=== PATIENT | male | born 1950 | race Caucasian/White ===

== ENCOUNTER → 2017-10-27 10:33 | Outpatient (CLI) | payer MEDICARE, MEDICAID, SELFPAY | PROVIDERS: PCP Family Medicine; Visit Provider Internal Medicine Transplant Hepatology | DX: B18.2 Chronic viral hepatitis C (principal) | CPT/HCPCS: 36415; 87517; 87522 ==

== ENCOUNTER → 2022-12-07 10:20 | Outpatient (CLI) | payer MEDICARE, SELFPAY ==
--- NOTE | 2022-12-07 10:26 | DI.RAD.S_ITS ---
PROCEDURE: XR CHEST 2V INDICATIONS: cough x 3-4 weeks TECHNIQUE: 2 views of the chest were acquired. COMPARISON: None. FINDINGS: Surgical changes and devices: None. Lungs and pleura: Possible nodule within the lingula measuring 2.4 centimeter. Mediastinum: Mediastinal contours are normal. Heart size is normal. Bones and chest wall: No suspicious bony abnormalities. Soft tissues appear unremarkable. IMPRESSION: Possible nodule within the lingula. Given size, consider confirmation with low-dose chest CT without contrast. Dictated by: Carroll Woodall M.D. on 12/07/2022 at 11:37 Approved by: Carroll Woodall M.D. on 12/07/2022 at 11:38
[2022-12-07 12:35] LABS: Add Manual Diff / Slide Review NO; Basophils Absolute Auto 0 /uL (0-100); Basophils Percent Auto 0.3 % (0-2); Eosinophils Absolute Auto 0 /uL (0-450); Eosinophils Percent Auto 0.6 % (2-4); Hematocrit 39.6 % (41-53); Hemoglobin 13.7 g/dL (13.5-17.5); Lymphocytes Absolute Auto 1200 /uL (1100-4500); Mean Corpuscular HGB Conc 34.7 % (30-36); Mean Corpuscular Hemoglobin 32.1 PG (26-34); Mean Corpuscular Volume 92.6 fL (80-100); Monocytes Absolute Auto 300 /uL (0-900); Neutrophils Absolute Auto 3500 /uL (1500-7000); Neutrophils Percent Auto 69.1 % (50-75); Platelet Count 201 X10^3/uL (150-400); Red Blood Cell Count 4.28 X10^6/uL (4.5-5.9); Red Cell Distribution Width 12.4 % (11.6-14.8)
[2022-12-07 13:14] LABS: Alanine Aminotransferase 20 IU/L (<50); Albumin 4.2 g/dL (3.5-5.0); Albumin Globulin Ratio 1.4 (1.0-2.8); Alkaline Phosphatase 61 U/L (38-126); Aspartate Aminotransferase 27 IU/L (17-59); BUN Creatinine Ratio 19.2 (6-22); Bilirubin Total 0.9 mg/dL (0.2-1.3); Blood Urea Nitrogen 15 mg/dL (9-20); Calcium 9.4 mg/dL (8.4-10.2); Carbon Dioxide 25 mmol/L (22-32); Chloride 102 mmol/L (98-107); Cholesterol 142 mg/dL (140-199); Estimated Glomerular Filt Rate > 60 mL/min (>60); Glucose 97 mg/dL (80-110); HDL Cholesterol 38 mg/dL (40-60); HEMOLYSIS < 15 (0-50); LDL Cholesterol Calculated 94 mg/dL (<100); Sodium 136 mmol/L (137-145); Total Protein 7.2 g/dL (6.3-8.2); Triglycerides 48 mg/dL (35-150)
[2022-12-07 13:34] LABS: Prostate Specific Antigen Scrn 3.11 ng/mL (0.1-4.0)
== END ==
PROVIDERS: PCP Family Medicine; Referring Provider Family Medicine; Visit Provider Family Medicine
DX: F17.200 Nicotine dependence, unspecified, uncomplicated (principal); Z12.5 Encounter for screening for malignant neoplasm of prostate; N52.9 Male erectile dysfunction, unspecified; R03.0 Elevated blood-pressure reading, without diagnosis of hypertension; E78.5 Hyperlipidemia, unspecified
CPT/HCPCS: 36415; 71046; 80053; 80061; 85025; G0103

== ENCOUNTER → 2022-12-09 14:18 | Outpatient (CLI) | payer MEDICARE, MEDICAID, SELFPAY ==
--- NOTE | 2022-12-09 14:20 | DI.CT.S_ITS ---
PROCEDURE: CT CHEST WO CON INDICATIONS: lung nodule TECHNIQUE: Noncontrast 5 mm thick sections acquired from the pulmonary apices to the posterior costophrenic angles. 1 mm lung window, 5 mm thick coronal and sagittal and 7 mm axial MIP reformats were then acquired. For radiation dose reduction, the following was used: automated exposure control, adjustment of mA and/or kV according to patient size. COMPARISON: [facility], CR, XR CHEST 2V, 12/07/2022, 10:28. FINDINGS: Image quality: Excellent. Lungs and pleura: No acute air space opacities. No pleural effusions or pneumothorax. Central and peripheral airways are patent and normal in caliber. No nodule within the lingula 2 correspond with chest x-ray findings. Mediastinum: Heart size is normal. No pericardial effusion. No mediastinal adenopathy by size criteria. Thoracic aorta and central pulmonary arteries are normal in size. Esophagus is normal in caliber. No hiatal hernia. Mild coronary artery calcifications for age. Bones and chest wall: No suspicious bony lesions. No vertebral body compression fractures. No axillary or supraclavicular adenopathy by size criteria. Thyroid gland is unremarkable . Marked gynecomastia of the right breast relative to the left. Abdomen: Partially visualized right renal cystic lesion fluid attenuation. IMPRESSION: No pulmonary nodule corresponding to the x-ray finding. Findings on chest x-ray probably represented a nipple shadow. Marked right gynecomastia. Given asymmetric distribution and extent, consider further workup at a diagnostic breast Center. Dictated by: Carroll Woodall M.D. on 12/09/2022 at 16:38 Approved by: Carroll Woodall M.D. on 12/09/2022 at 16:41
== END ==
PROVIDERS: PCP Family Medicine; Referring Provider Family Medicine; Visit Provider Family Medicine
DX: R91.1 Solitary pulmonary nodule (principal); N62 Hypertrophy of breast
CPT/HCPCS: 71250

== ENCOUNTER 2023-05-12 09:53 | Day surgery (SDC) | payer MEDICARE, SELFPAY ==
[2023-05-12 10:14] VITALS: BP 177/80; PULSE 74; RESP 16; TEMP 36.3; O2SAT 98
--- NOTE | 2023-05-12 10:46 | P.HP_ITS ---
History of Present Illness History of Present Illness Date Patient Seen: 05/12/23 Time Patient Seen: 10:46 Chief complaint: Screening Colonoscopy Narrative: First colonoscopy for colon cancer screening. Does not know of any family history, is not having any current symptoms PFSH Medical History Erectile dysfunction Hyperlipidemia Surgical History History of vasectomy Family History Mother Diabetes mellitus Social History Smoking Status: Current every day smoker alcohol intake: former Meds Home Medications and Allergies Home Medications Medication Instructions Recorded Confirmed Type sildenafil 100 mg tablet (Viagra) 50 - 100 mg (0.5 - 1 x 100 mg) PO 01/04/23 01/04/23 Rx DAILY PRN sexual activity #20 tabs sodium,potassium,mag sulfates 17.5 See Rx Instructions PO .COMPLEX 04/10/23 Rx gram-3.13 gram-1.6 gram oral soln #354 mL (Suprep Bowel Prep Kit) Allergies Allergy/AdvReac Type Severity Reaction Status Date / Time No Known Drug Allergies Allergy Unverified 01/04/23 10:30 Review of Systems Review of Systems ROS: Yes All systems reviewed with the patient and are negative except as otherwise documented Exam Vital Signs (past 8 hours): - 05/12/23 10:14 Temperature 97.4 F L Pulse Rate 74 Respiratory Rate 16 Blood Pressure 177/80 H Pulse Oximetry 98 Oxygen Delivery Method Room Air Oxygen Delivery Method Room Air Const General: cooperative, healthy appearing and comfortable Nutritional Appearance: average body habitus [facility] Head: normocephalic and atraumatic Eyes General: appearance normal, both eyes and all related structures Sclera: sclerae normal Neck Neck: trachea midline and No JVD Resp Effort & Inspection: normal respiratory effort, able to speak in complete sentences and normal respiratory pattern Cardio Rate: regular rate Rhythm: regular rhythm GI Palpation: soft Skin General: elasticity normal and atrophy Neuro General: patient alert, patient awake and patient oriented x3 Speech: speech normal Psych Mental Status: mental status grossly normal Judgment: judgment good Assessment & Plan Assessment & Plan narrative: colon cancer screening with colonoscopy and anesthesia Time Spent With Patient Time with patient: less than 30 minutes
--- NOTE | 2023-05-12 11:14 | PM.OP.COLON ---
Operative Date/Time/Diagnoses Date of procedure: 05/12/23 Time of procedure: 11:14 Pre-op diagnosis: Colon cancer screening Post-op diagnosis: same Procedure & Clinicians Study performed: Colonoscopy with anesthesia Same procedure as scheduled: Yes Indications: Colon cancer screening Surgeon: Justyna Mcclellan Procedure Notes Procedure in detail: Preop diagnosis: Colon cancer screening Postop diagnosis: Same Operative procedure: Colonoscopy with anesthesia Surgeon: Irish Mcclellan MD Findings: Normal colonoscopy. No diverticulosis, no polyps Procedure: Patient placed in a lateral position. Rectal exam performed showing normal tone no masses. Colonoscope inserted into the rectum and advanced to ileocecal valve with minimal difficulty. Insufflation extraction of the scope including the retroflex in the rectum had the above findings. Impression: Normal colonoscopy, no polyps Plan: Repeat colonoscopy in 10 years unless otherwise indicated by change in clinical condition Specimen(s): none sent Complications: none Post-procedure Recommendations: Colonoscopy in 10 years Follow up: as needed Disposition: PACU
[2023-05-12 11:17] VITALS: BP 112/72; PULSE 59; RESP 18; TEMP 36.9; O2SAT 95
[2023-05-12 11:23] VITALS: BP 122/80; PULSE 67; RESP 18; O2SAT 97
[2023-05-12 11:28] VITALS: BP 114/84; PULSE 76; RESP 16; O2SAT 97
[2023-05-12 11:33] VITALS: BP 133/91; PULSE 66; RESP 18; TEMP 36.6; O2SAT 97
== END 2023-05-12 11:56 | disposition home or self-care (01) ==
PROVIDERS: PCP Family Medicine; Referring Provider Surgery; Visit Provider Surgery
PROC: 0DJD8ZZ Inspection of Lower Intestinal Tract, Via Natural or Artificial Opening Endoscopic (ICD-10-PCS; CPT 45378; principal; 2023-05-12 10:45)
DX: Z12.11 Encounter for screening for malignant neoplasm of colon (principal)
CPT/HCPCS: G0121; J2704

== ENCOUNTER → 2024-05-28 11:57 | Outpatient (CLI) | payer MEDICARE, SELFPAY ==
--- NOTE | 2024-05-28 12:02 | DI.US.S_ITS ---
PROCEDURE: US SCROTUM INDICATIONS: swollen testicle TECHNIQUE: Real-time scanning was performed of the scrotum and testicles, with image documentation. Color and pulse Doppler interrogation was performed of both testicles. COMPARISON: None. FINDINGS: Right: Testicle is normal in size at 4.0 x 1.7 x 2.5 cm, and homogenous in echotexture. Epididymis is normal in overall size and morphology. No hydrocele or varicoceles. Overlying scrotal skin is normal in thickness. Left: Testicle is normal in size at 3.1 x 2.2 x 2.5 cm, and homogeneous in echotexture. Epididymis is normal in overall size and morphology. Complex appearing in left hydrocele is seen measures 20.9 x 0.9 x 1.9 cm in size. Internal debris is noted. Possible 5 mm scrotal harris is also seen within left scrotum. No varicoceles. Overlying scrotal skin is normal in thickness. Doppler: Color and pulse Doppler demonstrate normal and symmetric arterial flow in both testicles. IMPRESSION: 1. Moderate complex appearing left hydrocele. 5 mm scrotal harris within left scrotum. No varicocele. Left scrotal wall thickening concerning for scrotal cellulitis. 2. No abnormality is seen in bilateral testes or epididymi. No evidence of testicular torsion. No significant right-sided hydrocele. Dictated by: Sam Arreaga M.D. on 05/28/2024 at 13:17 Approved by: Sam Arreaga M.D. on 05/28/2024 at 13:23
== END ==
PROVIDERS: PCP Family Medicine; Referring Provider Physician Assistant; Visit Provider Physician Assistant
DX: N50.89 Other specified disorders of the male genital organs (principal); N43.3 Hydrocele, unspecified; N40.1 Benign prostatic hyperplasia with lower urinary tract symptoms; N13.8 Other obstructive and reflux uropathy; Z68.26 Body mass index [BMI] 26.0-26.9, adult
CPT/HCPCS: 76870; 81002; 93975; 99214

== ENCOUNTER → 2024-08-27 15:03 | Outpatient (CLI) | payer MEDICARE, SELFPAY ==
--- NOTE | 2024-08-27 15:15 | DI.US.S_ITS ---
PROCEDURE: US SCROTUM INDICATIONS: 73 y/o M w/ 1.5cm mass w/in tail of L epididymis TECHNIQUE: Real-time scanning was performed of the scrotum and testicles, with image documentation. Color and pulse Doppler interrogation was performed of both testicles. COMPARISON: [facility], , US SCROTUM, 05/28/2024, 12:10. FINDINGS: Right: Testicle is normal in size at 3.9 x 2.8 x 1.9 cm, and homogenous in echotexture. 4 mm cyst in the right epididymis. Otherwise the epididymis is normal in overall size and morphology. Small hydrocele. No varicocele. Overlying scrotal skin is normal in thickness. Left: Testicle is normal in size at 3.1 x 2.6 x 1.9 cm, and homogeneous in echotexture. Epididymis is normal in overall size and morphology. Moderate hydrocele. Small varicocele. Overlying scrotal skin is normal in thickness. Doppler: Color and pulse Doppler demonstrate normal and symmetric arterial flow in both testicles. IMPRESSION: 1. Bilateral hydroceles, left greater than right. 2. Small left varicocele. 3. Right epididymal cyst. Dictated by: Araceli Muse M.D. on 08/27/2024 at 16:17 Approved by: Araceli Muse M.D. on 08/27/2024 at 16:19
== END ==
PROVIDERS: PCP Family Medicine; Referring Provider Family Medicine; Visit Provider Urology
DX: N43.3 Hydrocele, unspecified (principal); N50.3 Cyst of epididymis
CPT/HCPCS: 76870; 93975